=== PATIENT | female | born 2005 | race Caucasian/White ===

== ENCOUNTER 2023-10-30 17:12 | Emergency (ER) | payer OTHER, SELFPAY ==
[2023-10-30 17:14] VITALS: BP 114/77; PULSE 76; RESP 12; TEMP 36.3; O2SAT 100
--- NOTE | 2023-10-30 17:56 | ED.GENADULT ---
HPI - General Adult General Chief complaint: Unspecified Stated complaint: on and off sternum pain acid reflux 2 months Time Seen by Provider: 10/30/23 17:57 Focused HPI: Herlinda is a 18-year-old female patient presenting to the ER today with complaints epigastric pain/sternum pain off and on x2 months. She reports the pain is sharp. Pain did get worse today and that prompted her to go to the [facility] urgent care. The urgent care sent her here for further evaluation. Has been taking some omeprazole over the past 2 months and that has helped with some of her pain. States the pain is worse after eating. She denies any urinary symptoms. Has periodic diarrhea without any blood in her stool. Denies any weight loss. General: Well-developed, well nourished, in no apparent distress. Head: Normocephalic, atraumatic. Cardio: Regular rate and rhythm, s1 and s2 normal, no murmur appreciated. Resp: Clear to auscultation bilaterally, no rhonchi, rales, wheezing or rubs. Abdomen: Soft, pliable, bowel sounds present in all quadrants, non-tender to palpation, no organomegly, no CVAT tenderness. Patient screened in triage and initial orders placed. Additional care and disposition to be based upon diagnostic testing and treatment. Source: patient Mode of arrival: ambulatory Limitations: no limitations Related Data Allergies Allergy/AdvReac Type Severity Reaction Status Date / Time No Known Allergies Allergy Verified 10/30/23 18:02 Review of Systems Review of Systems: Pertinent positives per HPI. Patient denies any fever, chills, rash, headache, visual changes, dizziness, cough, runny nose, sore throat, shortness of breath, chest pain, palpitations, vomiting, diarrhea, constipation, or any urinary issues. PMFSH Comments At the time of my signature, I reviewed and agree with the nursing past medical, surgical, social, and family history. There is no relevant family history pertinent to the patient complaint. Exam Narrative: General: Well-developed, well nourished, in no apparent distress. Head: Normocephalic, atraumatic. Cardio: Regular rate and rhythm, s1 and s2 normal, no murmur appreciated. Resp: Clear to auscultation bilaterally, no rhonchi, rales, wheezing or rubs. Abdomen: Soft, pliable, bowel sounds present in all quadrants, non-tender to palpation, no organomegly, no CVAT tenderness. Course Course Emergency Course: Portions of this record may have been created with voice recognition software. Vital Signs Vital signs: Vital Signs Temperature 36.3 C L 10/30/23 17:14 Pulse Rate 76 10/30/23 17:14 Respiratory Rate 12 10/30/23 17:14 Blood Pressure 114/77 10/30/23 17:14 Pulse Oximetry 100 10/30/23 17:14 Oxygen Delivery Room Air 10/30/23 17:14 Temperature 36.3 C L 10/30/23 17:14 Pulse Rate 76 10/30/23 17:14 Respiratory Rate 12 10/30/23 17:14 Blood Pressure 114/77 10/30/23 17:14 Pulse Oximetry 100 10/30/23 17:14 Oxygen Delivery Room Air 10/30/23 17:14 Vital signs reviewed Medical Decision Making MDM Narrative Medical decision making narrative: At the time of visit patient is resting comfortably on the exam table. Patient appears to be nontoxic. EKG: Normal sinus rhythm with heart rate of 84 beats per minute Labs: CBC shows white blood cell count of 8.3, H&H of 13.0 and 39.4, platelet count 300, chemistry shows sodium of 139, potassium at 3.7, chloride 107, carbon dioxide 23, BUN of 10, creatinine 0.5, GFR greater than 60, glucose is 122, negative troponin, liver function tests are normal, lipase is normal at 87. Urine is negative for any blood or infection. Plan: I suspect patient has GERD/epigastric pain. Will send in prescription for omeprazole 40 mg and have the patient take this daily and have her follow-up with GI. Supportive measures were discussed with the patient and they voiced understanding discharge instructions and agrees to treatment plan. Retu
--- NOTE | 2023-10-30 18:02 | ECG_ITS ---
Measurements Intervals Hulen Rate: 84 P: 51 NM: 88 QRS: 24 QRSD: 86 T: 10 QT: 383 QTc: 455 Interpretive Statements SINUS RHYTHM WITH SHORT NM INTERVAL RSR' IN V1 OR V2, PROBABLY NORMAL VARIANT LOW QRS VOLTAGE IN PRECORDIAL LEADS BORDERLINE ST-T WAVE ABNORMALITY- ANT/INF LEADS BASELINE ARTIFACT- I, III, AVR, AVL, AVF, V1, V4-V6 BORDERLINE ECG NO PREVIOUS ECG AVAILABLE FOR COMPARISON Electronically Signed On 10-30-2023 19:11:41 CDT by Juve Pisano D.O.
[2023-10-30 18:26] LABS: Basophils Percent Auto 0.4 % (0.2-1.2); Eosinophils Absolute Auto 0.2 K/mm3 (0-0.3); Hematocrit 39.4 % (37.0-47.0); Immature Granulocyte Absolute 0.02 K/mm3 (0.00-0.031); Immature Granulocyte Percent A 0.2 % (0-0.5); Lymphocytes Absolute Auto 3.23 K/mm3 (0.9-3.2); Lymphocytes Percent Auto 38.8 % (18.3-44.2); Mean Corpuscular Hemoglobin 28.6 pg (26-34); Mean Corpuscular Volume 86.8 fl (80-100); Mean Platelet Volume 9.6 fl (7.4-10.4); Monocytes Absolute Auto 0.7 K/mm3 (0.1-0.6); Monocytes Percent Auto 8.1 % (2.6-8.5); Neutrophils Absolute Auto 4.2 K/mm3 (1.3-6.7); Neutrophils Percent Auto 50.5 % (45.5-73.1); Platelet Count Result 300 k/mm3 (150-375); Red Blood Count 4.54 M/mm3 (4.2-5.4); Red Cell Distribution Width 11.5 % (11.5-14.5); White Blood Count 8.3 K/mm3 (4.5-10.0)
[2023-10-30 18:37] LABS: Appearance Urine Clear (Clear); Bilirubin Urine Negative (Negative); Blood Urine Negative (Negative); Color Urine Yellow (Yellow); Glucose Urine UA Negative (Negative); Ketones Urine Negative (Negative); Leukocyte Esterase Ur Negative LEU/UL (Negative); Nitrate Urine Negative (Negative); Protein Urine Negative (Negative); Specific Grav Ur 1.024 (1.001-1.035); Urobilinogen Urine 0.2 mg/dL (<2.0); pH Urine 5.5 (5.0-9.0)
[2023-10-30 18:38] LABS: Add Urine Microscopic? NO
[2023-10-30 18:38] LABS: Alanine Aminotransferase 12 U/L (6-35); Albumin Level 4.4 g/dL (3.5-5.1); Alkaline Phosphatase 48 U/L (38-126); Anion Gap 9 mmol/L (8-16); Aspartate Amino Transferase 18 U/L (14-36); Bilirubin,Total 0.3 mg/dL (0.2-1.3); Blood Urea Nitrogen 10 mg/dL (7-17); Calcium 9.2 mg/dL (8.4-10.2); Carbon Dioxide 23 mmol/L (22-30); Chloride 107 mmol/L (98-107); Estimated CRCL calculation 108 ml/min; Estimated Glomerular Filt Rate > 60; Glucose 122 mg/dL (65-110); Lipase 87 U/L (23-300); Potassium 3.7 mmol/L (3.4-5.0); Sodium 139 mmol/L (137-145)
[2023-10-30 18:49] LABS: Troponin I < 0.012 ng/mL (0.000-0.034)
== END 2023-10-30 19:40 | disposition home or self-care (01) ==
LOC: ANHED 19:13
PROVIDERS: Emergency Provider Nurse Practitioner Family
DX: R10.13 Epigastric pain (principal); K21.9 Gastro-esophageal reflux disease without esophagitis; R94.31 Abnormal electrocardiogram [ECG] [EKG]
CPT/HCPCS: 36415; 80053; 81025; 83690; 84484; 85025; 93005; 99284